=== PATIENT | female | born 1935 | race Caucasian/White ===

== ENCOUNTER 2017-11-01 20:48 | Inpatient (IN) | payer MEDICARE ==
[~2017-11-01] VITALS: Ht 154.9 cm; Wt 62.6 kg
--- NOTE | 2017-11-01 20:48 | NUR ---
BETITO 102 FROM HOME, PER RA "PD FOUND PT ON FLOOR" PT A/OX3 ABLE TO MAKE NEEDS KNOWN. VSS NAD. NO SOB OR PAIN AT THIS TIME. MANY BRUISES FROM "COUMADIN". DENIES FALL BUT BRUISE ON RIGHT FOREHEAD AND LEFT HAND THAT RESEMBLE A FALL. WILL CONTINUE TO MONITOR FOR ANY CHANGES
--- NOTE | 2017-11-01 20:53 | NUR ---
CALL FROM NOÉ JAUREGUI- SISTER [phone]
[2017-11-01] MEDS ORDERED: ROSU5TAB PO (20:57)
[2017-11-01] MEDS ORDERED: WARF1TAB47 PO (20:57)
[2017-11-01] MEDS ORDERED: LEVO50TA8 PO (20:57)
[2017-11-01 21:22] LABS: BASOPHILS # (AUTO) 0.3 /CMM (0.0-0.2); BASOPHILS % (AUTO) 1.9 % (0.0-2.0); EOSINOPHILS % (AUTO) 0.2 % (0.0-6.0); HEMATOCRIT 35 % (33-45); HEMOGLOBIN 12.2 g/dL (11.5-14.8); LYMPHOCYTES # (AUTO) 0.4 /CMM (0.8-4.8); MEAN CORPUSCULAR HEMOGLOBIN 34 PG (26.0-33.0); MEAN CORPUSCULAR HGB CONC 35 g/dl (31.0-36.0); MEAN CORPUSCULAR VOLUME 97 fL (82-100); MONOCYTES % (AUTO) 7.4 % (2.0-12.0); NEUTROPHILS % (AUTO) 87.5 % (43.0-81.0); PLATELET COUNT (AUTO) 227 /CMM (150-450); RDW COEFFICIENT OF VARIATION 13.7 (11.5-15.0); RED BLOOD CELL COUNT(AUTO) 3.62 MIL/uL (4.0-5.2); WHITE BLOOD COUNT (AUTO) 13.7 K/uL (4.3-11.0)
[2017-11-01 21:31] LABS: APPEARANCE,URINE Slightly Cloudy (CLEAR); BILIRUBIN,URINE Negative (NEGATIVE); BLOOD, URINE Large Ery/uL (NEGATIVE); COLOR,URINE Dark (YELLOW); KETONES,URINE Negative (NEGATIVE); LEUKOCYTE ESTERASE ,URINE Negative (NEGATIVE); NITRITE, URINE Negative (NEGATIVE); PH,URINE 5.5 (5.0-8.0); PROTEIN,URINE >=300 mg/dl (NEGATIVE); UGLUCOSE Negative (NEGATIVE); UROBILINOGEN,URINE 0.2 EU/dL (0.2)
[2017-11-01 21:34] LABS: CALCIUM, SERUM 9.1 mg/dL (8.5-10.1); CARBON DIOXIDE 25 mmol/L (21-32); CHLORIDE 103 mmol/L (98-107); GLUCOSE 125 mg/dL (74-106); POTASSIUM 4.1 mmol/L (3.5-5.1); SODIUM SERUM 140 mmol/L (136-145); UREA NITROGEN, BLOOD 31 mg/dL (7-18)
[2017-11-01 21:37] LABS: INR 2.22 (0.85-1.15)
[2017-11-01 21:39] LABS: ALANINE AMINOTRANSFERASE 44 U/L (12-78); ALBUMIN 3.7 g/dL (3.4-5.0); ALCOHOL, BLOOD < 3 mg/dL (0-0); ALKALINE PHOSPHATASE 67 U/L (46-116); ASPARTATE AMINOTRANSFERASE 98 U/L (15-37); BILIRUBIN,DIRECT 0.5 mg/dL (0.0-0.2); BILIRUBIN,TOTAL 3.8 mg/dL (0.2-1.0); TOTAL PROTEIN, SERUM 7.1 g/dL (6.4-8.2)
[2017-11-01 21:43] LABS: ACETAMINOPHEN < 2 ug/ml (10-30); SALICYLATE < 2.0 mg/dL (2.8-20.0)
--- NOTE | 2017-11-01 21:45 | NUR ---
PT BACK FROM CT SCAN
[2017-11-01 21:47] LABS: BACTERIA,URINE Rare /HPF (None Seen); RBC,URINE 21-50 /HPF (0-2); SQUAMOUS EPITHELIAL CELL,UR Few /HPF (None Seen); WBC,URINE 0-2 /HPF (0-3)
--- NOTE | 2017-11-01 21:47 | NUR ---
TARAH MCLEOD - DAUGHTER [phone]
--- NOTE | 2017-11-01 22:17 | NUR ---
REPORT GIVEN TO DELON
[2017-11-01 22:36] LABS: CREATINE KINASE MB 14.4 ng/mL (0-3.6)
[2017-11-01 22:45] VITALS: BP 139/68
--- NOTE | 2017-11-01 22:45 | NUR ---
TELE/RN OPENING NOTES PT ARRIVED TO UNIT FROM ER VIA GURNEY. ORIENTED PT TO ROOM AND CALL LIGHT. ON ROOM AIR, BREATHING EVEN AND UNLABORED. NO SOB, DENIES PAIN. IV TO LAC PATENT AND INTACT. PLACED ON TELE MONITOR SHOWING A.FIB HR 80S. BED IN LOW/LOCKED POSITION WITH CALL LIGHT IN REACH. SIDE RAILS UPX2. WILL CONTINUE TO MONITOR
[2017-11-01] MEDS ORDERED: IV NS 0.9% 1,000 ML IV PRN (23:08)
[2017-11-01] MEDS ORDERED: ZOLPIDEM TARTRATE 5 MG TABLET PO PRN (23:30)
[2017-11-01] MEDS ORDERED: MAGNESIUM HYDROXIDE 30 ML UDC PO PRN (23:30)
[2017-11-01] MEDS ORDERED: MORPHINE SULFATE INJ 2 MG/ML DISP.SYRIN IV PRN (23:30)
[2017-11-01] MEDS ORDERED: MAG HYDROX/AL HYDROX/SIMETH 30 ML UDC PO PRN (23:30)
[2017-11-01] MEDS ORDERED: ONDANSETRON HCL/PF 4 MG/2 ML VIAL IVP PRN (23:30)
[2017-11-01] MEDS ORDERED: HYDROCODONE/APAP 5/325MG 1 EACH TABLET PO PRN (23:30)
[2017-11-02] VITALS: BP 116/79
--- NOTE | 2017-11-02 | NUR ---
TELE/RN NOTES DAUGHTER TARAH [phone] CALLED AND WAS PROVIDED WITH UPDATES WITH PT'S PERMISSION.
[2017-11-02 04:00] VITALS: BP 129/69
[2017-11-02 06:35] LABS: BASOPHILS % (AUTO) 0.4 % (0.0-2.0); EOSINOPHILS % (AUTO) 0.3 % (0.0-6.0); HEMATOCRIT 34 % (33-45); HEMOGLOBIN 11.6 g/dL (11.5-14.8); LYMPHOCYTES # (AUTO) 0.9 /CMM (0.8-4.8); LYMPHOCYTES % (AUTO) 8.6 % (20.0-44.0); MEAN CORPUSCULAR HEMOGLOBIN 34 PG (26.0-33.0); MEAN CORPUSCULAR HGB CONC 35 g/dl (31.0-36.0); MEAN CORPUSCULAR VOLUME 99 fL (82-100); MONOCYTES # (AUTO) 0.8 /CMM (0.1-1.30); MONOCYTES % (AUTO) 7.7 % (2.0-12.0); NEUTROPHILS # (AUTO) 8.5 /CMM (1.8-8.9); PLATELET COUNT (AUTO) 198 /CMM (150-450); RDW COEFFICIENT OF VARIATION 14.4 (11.5-15.0); RED BLOOD CELL COUNT(AUTO) 3.41 MIL/uL (4.0-5.2); WHITE BLOOD COUNT (AUTO) 10.2 K/uL (4.3-11.0)
[2017-11-02 06:55] LABS: CALCIUM, SERUM 8.5 mg/dL (8.5-10.1); CARBON DIOXIDE 28 mmol/L (21-32); CHLORIDE 105 mmol/L (98-107); CHOLESTEROL 205 mg/dL (<200); CREATININE 0.9 mg/dL (0.6-1.3); GLUCOSE 95 mg/dL (74-106); HDL CHOLESTEROL 126 mg/dL (40-60); LDL 69 mg/dL (0-99); POTASSIUM 4.1 mmol/L (3.5-5.1); SODIUM SERUM 143 mmol/L (136-145); THYROID STIMULATING HORMONE 3.121 uIU/mL (0.358-3.74); TRIGLYCERIDES 62 mg/dL (30-150); UREA NITROGEN, BLOOD 28 mg/dL (7-18)
--- NOTE | 2017-11-02 07:19 | NUR ---
TELE/RN CLOSING NOTES PT ASLEEP, EASILY AROUSABLE TO NAME. A/OX3 WITH PERIODS OF CONFUSION. ON ROOM AIR, BREATHING EVEN AND UNLABORED. NO SOB OR PAIN NOTED. IV TO LAC PATENT AND INTACT RUNNING IVF ORDERED. ON TELE MONITOR SHOWING A.FIB WITH HR 80'S. NO SIGNIFICANT CHANGES OVERNIGHT. ALL NEEDS MET. KEPT PT COMFORTABLE DURING SHIFT. CURRENTLY NPO FOR CARDIO CONSULT. BED IN LOW/LOCKED POSITION WITH CALL LIGHT IN REACH. SIDE RAILS UPX3. BED ALARM ON FOR SAFETY. ENDORSED TO DAY SHIFT RN SACHI.
--- NOTE | 2017-11-02 07:29 | NUR ---
COPY WORKER OPENING NOTES RECEIVED PATIENT IN STABLE CONDITION. IN NO APPARENT DISTRESS. PATIENT IS ASLEEP EASILY AROUSABLE. IV LINE IS PATENT AND INTACT. CALL LIGHT IS WITHIN REACH. BEDSIDE RAILS ARE UPX2. BED IS LOCKED AND LOWERED. WILL CONTINUE TO MONITOR.
[2017-11-02 07:45] LABS: CREATINE KINASE MB 7.6 ng/mL (0-3.6)
[2017-11-02 08:08] VITALS: BP 120/64
[2017-11-02 08:25] LABS: TROPONIN I 0.072 ng/mL (0.00-0.056)
[2017-11-02] MEDS: LEVOTHYROXINE SODIUM 50 MCG TABLET PO SCH (08:36)
[2017-11-02] MEDS: PANTOPRAZOLE 40 MG TABLET.DR PO SCH (08:36)
[2017-11-02] MEDS: WARFARIN SODIUM 1 MG TABLET PO SCH (08:38)
[2017-11-02] MEDS: IV NS 0.9% 1,000 ML IV PRN (11:30)
[2017-11-02 11:49] LABS: CALCIUM, SERUM 8.2 mg/dL (8.5-10.1); CARBON DIOXIDE 26 mmol/L (21-32); CHLORIDE 106 mmol/L (98-107); CREATININE 0.9 mg/dL (0.6-1.3); GLUCOSE 120 mg/dL (74-106); POTASSIUM 3.7 mmol/L (3.5-5.1); SODIUM SERUM 139 mmol/L (136-145); UREA NITROGEN, BLOOD 29 mg/dL (7-18)
[2017-11-02 12:00] VITALS: BP_SYST 116; BP_SYST 123; BP_SYST 125; BP_DIAS 65; BP_DIAS 67; BP_DIAS 76
[2017-11-02 12:14] LABS: CREATINE KINASE, TOTAL 2101 U/L (26-192)
--- NOTE | 2017-11-02 14:05 | NUR ---
PATIENT AMBULATED WITH PHYSICAL THERAPY.
[2017-11-02 15:52] VITALS: BP 120/75
--- NOTE | 2017-11-02 18:58 | NUR ---
SIGNAL SUPERVISOR CLOSING NOTES PATIENT IS ALERT AND ORIENTED. IN NO APPARENT DISTRESS. BEDSIDE RAILS ARE UPX2. BED IS LOCKED AND LOWERED. ALL NEEDS WERE MET. CALL LIGHT IS WITHIN REACH. WILL ENDORSE CARE TO TICKET ATTENDANT NURSE FOR SACHI.
--- NOTE | 2017-11-02 19:30 | NUR ---
ROENTGENOLOGY TEACHER NOTE: PATIENT RESTING IN BED, NO ACUTE DISTRESS NOTED. BREATHING EVEN AND UNLABORED, NO SOB NOTED. TELE READING AFIB WITH PVC, HR 78. IV TO LAC IN PLACE, INFUSING NS AT 150ML/HR. BED LOCKED AND IN LOWEST POSITION, CALL LIGHT IN REACH. WILL CONTINUE TO MONITOR.
[2017-11-02 19:52] VITALS: BP 120/70
[2017-11-02] MEDS: ATORVASTATIN 10 MG TABLET PO SCH (21:31)
[2017-11-03] VITALS: BP 111/65
[2017-11-03] MEDS: IV NS 0.9% 1,000 ML IV PRN ×3 (02:47→21:04)
--- NOTE | 2017-11-03 03:30 | NUR ---
ELEVATOR WORKER NOTE: PATIENT SLEEPING, NO ACUTE DISTRESS NOTED. BREATHING EVEN AND UNLABORED, NO SOB NOTED. BED LOCKED AND IN LOWEST POSITION, CALL LIGHT IN REACH. WILL CONTINUE TO MONITOR.
[2017-11-03 04:00] VITALS: BP 128/76
--- NOTE | 2017-11-03 06:30 | NUR ---
CLEAN RICE GRADER AND REEL TENDER NOTE: PATIENT RESTING IN BED, NO ACUTE DISTRESS NOTED. BREATHING EVEN AND UNLABORED, NO SOB NOTED. TELE READING AFIB WITH PVC, HR 78. IV TO LAC IN PLACE, INFUSING NS AT 150ML/HR. BED LOCKED AND IN LOWEST POSITION, CALL LIGHT IN REACH. WILL ENDORSE TO DAY NURSE TO CONTINUE WITH PLAN OF CARE.
[2017-11-03 06:44] LABS: BASOPHILS % (AUTO) 0.4 % (0.0-2.0); EOSINOPHILS # (AUTO) 0.2 /CMM (0.0-0.7); EOSINOPHILS % (AUTO) 1.8 % (0.0-6.0); HEMATOCRIT 33 % (33-45); HEMOGLOBIN 11.3 g/dL (11.5-14.8); LYMPHOCYTES # (AUTO) 1.3 /CMM (0.8-4.8); LYMPHOCYTES % (AUTO) 12.7 % (20.0-44.0); MEAN CORPUSCULAR HEMOGLOBIN 34 PG (26.0-33.0); MEAN CORPUSCULAR HGB CONC 34 g/dl (31.0-36.0); MEAN CORPUSCULAR VOLUME 99 fL (82-100); MONOCYTES # (AUTO) 0.7 /CMM (0.1-1.30); NEUTROPHILS # (AUTO) 7.8 /CMM (1.8-8.9); NEUTROPHILS % (AUTO) 78.1 % (43.0-81.0); PLATELET COUNT (AUTO) 181 /CMM (150-450); RDW COEFFICIENT OF VARIATION 14.9 (11.5-15.0); RED BLOOD CELL COUNT(AUTO) 3.32 MIL/uL (4.0-5.2)
[2017-11-03 06:56] LABS: ALANINE AMINOTRANSFERASE 44 U/L (12-78); ALBUMIN 2.9 g/dL (3.4-5.0); ALKALINE PHOSPHATASE 60 U/L (46-116); ASPARTATE AMINOTRANSFERASE 79 U/L (15-37); BILIRUBIN,TOTAL 2.4 mg/dL (0.2-1.0); CALCIUM, SERUM 7.9 mg/dL (8.5-10.1); CARBON DIOXIDE 25 mmol/L (21-32); CHLORIDE 108 mmol/L (98-107); CREATININE 0.9 mg/dL (0.6-1.3); GLUCOSE 93 mg/dL (74-106); MAGNESIUM 1.8 mg/dL (1.8-2.4); POTASSIUM 3.6 mmol/L (3.5-5.1); SODIUM SERUM 142 mmol/L (136-145); TROPONIN I 0.043 ng/mL (0.00-0.056); UREA NITROGEN, BLOOD 28 mg/dL (7-18)
[2017-11-03 07:00] VITALS: BP 120/67
--- NOTE | 2017-11-03 07:30 | NUR ---
EDUCATION MANAGERS OPENING NOTES PATIENT IS ALERT AND ORIENTED X3. RECEIVED PATIENT IN STABLE CONDITION. IN NO APPARENT DISTRESS. BEDSIDE RAILS ARE UPX2. IV LINE IS PATENT AND INTACT. BED IS LOCKED AND LOWERED. CALL LIGHT IS WITHIN REACH. WILL CONTINUE TO MONITOR.
[2017-11-03 08:36] LABS: INR 1.86 (0.87-1.13)
[2017-11-03] MEDS: LEVOTHYROXINE SODIUM 50 MCG TABLET PO SCH (08:44)
[2017-11-03] MEDS: ACETAMINOPHEN 325 MG TABLET PO PRN (08:45)
[2017-11-03] MEDS: PANTOPRAZOLE 40 MG TABLET.DR PO SCH (08:45)
[2017-11-03 08:48] LABS: INR 1.85 (0.87-1.13)
[2017-11-03] MEDS: WARFARIN SODIUM 1 MG TABLET PO SCH (08:48)
[2017-11-03] MEDS: SOD FERRIC GLUC 125 MG in IV NS 0.9% 100 ML IV SCH (13:47)
[2017-11-03 16:00] VITALS: BP 122/57
[2017-11-03] MEDS ORDERED: K PHOS NEUTRAL 250 MG TABLET PO ONE (16:00)
--- NOTE | 2017-11-03 18:30 | NUR ---
PEDIATRIC OPHTHALMOLOGIST CLOSING NOTES PATIENT IS IN STABLE CONDITION. IN NO APPARENT DISTRESS. BEDSIDE RAILS ARE UPX2. BED IS LOCKED AND LOWERED. CALL LIGHT IS WITHIN REACH. WILL ENDORSE CARE TO BLOWER AND COMPRESSOR ASSEMBLER NURSE FOR SACHI.
--- NOTE | 2017-11-03 19:35 | NUR ---
COUNTY BAILIFF OPENING NOTES RECEIVED PT IN BED ALERT, AWAKE, VERBALLY RESPONSIVE, ON ROOM AIR, RESPIRATIONS EVEN, UNLABORED, NO APPARENT DISTRESS NOTED. DENIES ANY PAIN OR DISCOMFORT AT THIS TIME. IV SITE LAC INTACT, PATENT.AFIB CONTROLLED 89.CALL LIGHT WITHIN REACH, ATTENDED ALL NEEDS. BED LOCKED IN LOWEST POSITION. KEPT CLEAN AND COMFORTABLE, ATTENDED ALL NEEDS. WILL CONTINUE TO MONITOR ACCORDINGLY.
[2017-11-03 20:00] VITALS: BP 129/81
[2017-11-03] MEDS: ATORVASTATIN 10 MG TABLET PO SCH (21:06)
[2017-11-03 22:00] VITALS: BP 128/80
[2017-11-04] MEDS: IV NS 0.9% 1,000 ML IV PRN (05:23)
--- NOTE | 2017-11-04 06:02 | NUR ---
PROPERTY ACCOUNTANT CLOSING NOTES PT IN BED, RESTING COMFORTABLY, ON ROOM AIR, RESPIRATIONS EVEN, UNLABORED, NO APPARENT DISTRESS NOTED. IV SITE LAC INTACT, PATENT. CALL LIGHT WITHIN REACH. KEPT CLEAN AND COMFORTABLE,BED LOCKED IN LOWEST POSITION. ATTENDED ALL NEEDS. WILL CONTINUE TO MONITOR ACCORDINGLY.
[2017-11-04 06:28] LABS: BASOPHILS % (AUTO) 0.5 % (0.0-2.0); EOSINOPHILS # (AUTO) 0.1 /CMM (0.0-0.7); EOSINOPHILS % (AUTO) 1.5 % (0.0-6.0); HEMATOCRIT 29 % (33-45); LYMPHOCYTES # (AUTO) 0.8 /CMM (0.8-4.8); LYMPHOCYTES % (AUTO) 8.7 % (20.0-44.0); MEAN CORPUSCULAR HEMOGLOBIN 34 PG (26.0-33.0); MEAN CORPUSCULAR HGB CONC 34 g/dl (31.0-36.0); MEAN CORPUSCULAR VOLUME 99 fL (82-100); MONOCYTES # (AUTO) 0.6 /CMM (0.1-1.30); MONOCYTES % (AUTO) 6.8 % (2.0-12.0); NEUTROPHILS # (AUTO) 7.8 /CMM (1.8-8.9); NEUTROPHILS % (AUTO) 82.5 % (43.0-81.0); PLATELET COUNT (AUTO) 176 /CMM (150-450); RDW COEFFICIENT OF VARIATION 15.1 (11.5-15.0); RED BLOOD CELL COUNT(AUTO) 2.95 MIL/uL (4.0-5.2); WHITE BLOOD COUNT (AUTO) 9.4 K/uL (4.3-11.0)
[2017-11-04 06:47] LABS: CALCIUM, SERUM 7.3 mg/dL (8.5-10.1); CARBON DIOXIDE 26 mmol/L (21-32); CHLORIDE 110 mmol/L (98-107); CREATININE 0.8 mg/dL (0.6-1.3); GLUCOSE 94 mg/dL (74-106); PHOSPHORUS 2.7 mg/dL (2.5-4.9); POTASSIUM 3.1 mmol/L (3.5-5.1); SODIUM SERUM 145 mmol/L (136-145); UREA NITROGEN, BLOOD 17 mg/dL (7-18)
[2017-11-04 06:55] LABS: CREATINE KINASE, TOTAL 532 U/L (26-192)
[2017-11-04 06:59] LABS: CREATINE KINASE MB 1.6 ng/mL (0-3.6)
--- NOTE | 2017-11-04 07:29 | NUR ---
CUTTER TENDER OPENING NOTES RECEIVED PATIENT IN STABLE CONDITION. IV LINE IS PATENT AND INTACT. PATIENT IS RESTING IN BED COMFORTABLY. IN NO APPARENT DISTRESS. PATIENT IS ALERT AND ORIENTED X3. BEDSIDE RAILS ARE UPX2. BED IS LOCKED AND LOWERED. CALL LIGHT IS WITHIN REACH. WILL CONTINUE TO MONITOR.
[2017-11-04 08:00] VITALS: BP 124/68
[2017-11-04] MEDS: LEVOTHYROXINE SODIUM 50 MCG TABLET PO SCH (08:05)
[2017-11-04] MEDS: PANTOPRAZOLE 40 MG TABLET.DR PO SCH (08:05)
[2017-11-04 08:09] LABS: INR 1.66 (0.87-1.13)
[2017-11-04] MEDS ORDERED: POTASSIUM CHLORIDE 20 MEQ TAB.PRT.SR PO SCH (09:00)
[2017-11-04] MEDS ORDERED: POTASSIUM CHLORIDE 20 MEQ TAB.PRT.SR PO ONE (09:30)
[2017-11-04] MEDS: SOD FERRIC GLUC 125 MG in IV NS 0.9% 100 ML IV SCH (14:39)
--- NOTE | 2017-11-04 15:07 | NUR ---
PER DIETITIAN, ORDERED BOOST BID CHOCOLATE FOR PATIENT DUE TO MALNUTRITION.
[2017-11-04] MEDS: ACETAMINOPHEN 325 MG TABLET PO PRN (15:44)
[2017-11-04 16:00] VITALS: BP_SYST 125; BP_SYST 135; BP_DIAS 67; BP_DIAS 77
[2017-11-04] MEDS: BOOST PLUS FOOD-CHOCLATE 237 ML BOX PO SCH (16:06)
[2017-11-04] MEDS: WARFARIN SODIUM 1 MG TABLET PO SCH (16:07)
--- NOTE | 2017-11-04 18:23 | NUR ---
MS RN CLOSING NOTES PATIENT IS ALERT AND ORIENTED X3. PATIENT IS RESTING COMFORTABLY IN BED IN NO APPARENT DISTRESS. BEDSIDE RAILS ARE UPX2. BED IS LOCKED AND LOWERED. CALL LIGHT IS WITHIN REACH. IV LINE IS INTACT AND PATENT. ALL NEEDS WERE MET. WILL ENDORSE CARE TO LABORER POULTRY HATCHERY NURSE FOR SACHI.
--- NOTE | 2017-11-04 19:30 | NUR ---
MS RN OPENING NOTES RECEIVED PT IN BED ALERT, AWAKE, VERBALLY RESPONSIVE, ON ROOM AIR, RESPIRATIONS EVEN, UNLABORED, NO APPARENT DISTRESS NOTED. DENIES ANY PAIN OR DISCOMFORT AT THIS TIME. IV SITE LAC INTACT, PATEN. CALL LIGHT WITHIN REACH. BED LOCKED IN LOWEST POSITION. KEPT CLEAN AND COMFORTABLE. ATTENDED ALL NEEDS. WILL CONTINUE TO MONITOR ACCORDINGLY.
[2017-11-04 20:00] VITALS: BP 107/76
[2017-11-04] MEDS: ATORVASTATIN 10 MG TABLET PO SCH (21:12)
[2017-11-04 22:00] VITALS: BP 107/76
--- NOTE | 2017-11-05 06:17 | NUR ---
MS RN CLOSING NOTES PT IN BED, RESTING COMFORTABLY, ON ROOM AIR, NO APPARENT DISTRESS NOTED. CALL LIGHT WITHIN REACH.BED LOCKED IN LOWEST POSITION. KEPT CLEAN AND COMFORTABLE. ATTENDED ALL NEEDS. WILL CONTINUE TO MONITOR ACCORDINGLY.
[2017-11-05 06:28] LABS: BASOPHILS % (AUTO) 0.4 % (0.0-2.0); EOSINOPHILS # (AUTO) 0.2 /CMM (0.0-0.7); EOSINOPHILS % (AUTO) 1.5 % (0.0-6.0); HEMATOCRIT 31 % (33-45); HEMOGLOBIN 10.5 g/dL (11.5-14.8); LYMPHOCYTES # (AUTO) 0.7 /CMM (0.8-4.8); LYMPHOCYTES % (AUTO) 7.1 % (20.0-44.0); MEAN CORPUSCULAR HEMOGLOBIN 34 PG (26.0-33.0); MEAN CORPUSCULAR HGB CONC 34 g/dl (31.0-36.0); MEAN CORPUSCULAR VOLUME 100 fL (82-100); MONOCYTES # (AUTO) 0.8 /CMM (0.1-1.30); MONOCYTES % (AUTO) 7.6 % (2.0-12.0); NEUTROPHILS # (AUTO) 8.6 /CMM (1.8-8.9); NEUTROPHILS % (AUTO) 83.4 % (43.0-81.0); PLATELET COUNT (AUTO) 213 /CMM (150-450); RDW COEFFICIENT OF VARIATION 15.3 (11.5-15.0); RED BLOOD CELL COUNT(AUTO) 3.09 MIL/uL (4.0-5.2); WHITE BLOOD COUNT (AUTO) 10.3 K/uL (4.3-11.0)
[2017-11-05 06:39] LABS: CALCIUM, SERUM 8.1 mg/dL (8.5-10.1); CARBON DIOXIDE 24 mmol/L (21-32); CHLORIDE 108 mmol/L (98-107); GLUCOSE 160 mg/dL (74-106); POTASSIUM 3.5 mmol/L (3.5-5.1); SODIUM SERUM 142 mmol/L (136-145); UREA NITROGEN, BLOOD 22 mg/dL (7-18)
[2017-11-05 06:55] LABS: CREATINE KINASE MB 1.3 ng/mL (0-3.6)
--- NOTE | 2017-11-05 07:10 | NUR ---
MS RN OPENING NOTES. PT RECEIVED A&0X2. PT TOLERATING ROOM AND AIR AND DENIES SOB, SAO2 WNL. PT WITH IVC AT L AC INTACT AND SALINE FLUSH PATENT. PT BED IN LOWEST LOCKED POSITION WITH HANDRAILSX2 AND CALL ANGELES WITHIN REACH. PT BRIEFED ON TODAY'S POC AND IS WITHOUT CONCERN OR COMPLAINT AT THIS TIME.
[2017-11-05 08:00] VITALS: BP 133/81
[2017-11-05] MEDS: LEVOTHYROXINE SODIUM 50 MCG TABLET PO SCH (08:16)
[2017-11-05] MEDS: PANTOPRAZOLE 40 MG TABLET.DR PO SCH (08:16)
[2017-11-05] MEDS ORDERED: ONCOUMADIN PO (08:19)
[2017-11-05] MEDS: BOOST PLUS FOOD-CHOCLATE 237 ML BOX PO SCH ×2 (08:32→16:10)
[2017-11-05 10:59] LABS: INR 1.43 (0.87-1.13)
[2017-11-05] MEDS: ACETAMINOPHEN 325 MG TABLET PO PRN (11:22)
[2017-11-05] MEDS: SOD FERRIC GLUC 125 MG in IV NS 0.9% 100 ML IV SCH (13:56)
[2017-11-05 16:00] VITALS: BP 127/84
--- NOTE | 2017-11-05 16:00 | NUR ---
RN D/C NOTE. PT PREPARED FOR D/C PER MD. PT TOLERATING ROOM AIR AND IS WITHOUT DISTRESS OR DISCOMFORT.PT IVC REMOVED AND NAD AT SITE. PT WITHOUT BELONGING FORM BUT PT AND DAUGHTER REPORT THEY HAVE ALL BELONGINGS, NEW DOCUMENT SIGNED. ROOM CHECKED AGAIN FOR BELONGING PRIOR TO EXIT. PT ENDORSED TO [facility] AT SNF. PT AND DAUGHTER BRIEFED ON [facility] D/C PACKET AND ARE VERBALIZING UNDERSTANDING RESOURCES AND INTENT TO FOLOW POC. COPY PROVIDED FOR SNF AND FOR DAUGHTER. ALL DAY NURSE DUTIES ATTENDED TO AND PT AND DAUGHTER ARE WITHOUT CONCERN OR COMPLAINT. PT EXIT WITH EMT TRANSPORT CREW.
[2017-11-05] MEDS: WARFARIN SODIUM 1 MG TABLET PO SCH (16:10)
== END 2017-11-05 16:00 | DRG 557 ==
LOC: ER 20:49 → TELE 21:58 → MED 11-04 09:06
PROVIDERS: ADMIT Nurse Practitioner Acute Care; ATTEND Nurse Practitioner Acute Care
DX: M62.82 Rhabdomyolysis (principal); G93.41 Metabolic encephalopathy; N17.9 Acute kidney failure, unspecified; G91.2 (Idiopathic) normal pressure hydrocephalus; F03.90 Unspecified dementia, unspecified severity, without behavioral disturbance, psychotic disturbance, mood disturbance, and anxiety; I48.2 Chronic atrial fibrillation; D50.9 Iron deficiency anemia, unspecified; E03.9 Hypothyroidism, unspecified; E78.5 Hyperlipidemia, unspecified; W19.XXXA Unspecified fall, initial encounter; S60.222A Contusion of left hand, initial encounter; E80.6 Other disorders of bilirubin metabolism; I10 Essential (primary) hypertension; Z86.73 Personal history of transient ischemic attack (TIA), and cerebral infarction without residual deficits; Z79.01 Long term (current) use of anticoagulants; Z95.2 Presence of prosthetic heart valve; Z88.0 Allergy status to penicillin; Z91.81 History of falling; Y93.9 Activity, unspecified; Y92.009 Unspecified place in unspecified non-institutional (private) residence as the place of occurrence of the external cause; S80.12XA Contusion of left lower leg, initial encounter; S80.11XA Contusion of right lower leg, initial encounter; I51.7 Cardiomegaly; I70.90 Unspecified atherosclerosis
CPT/HCPCS: 36415; 70450-TC; 71045-TC; 72125-TC; 72128-TC; 72131-TC; 73130-TC; 80048-TC; 80053-TC; 80061-TC; 80076-TC; 80305; 81000-TC; 82140-TC; 82306; 82550-TC; 82553-TC; 82728-TC; 82962-TC; 83540-TC; 83735-TC; 84100-TC; 84439-TC; 84443-TC; 84484-TC; 85025-TC; 85610-TC; 85730-TC; 87081-TC; 93307-TC; 95819-TC; 97110-TC; 97116-TC; A4606; G0480; J2916; J7030; Z7610